=== PATIENT | female | born 1965 | race Hispanic/Latino ===

== ENCOUNTER 2019-12-17 23:22 | Emergency (ER) | payer OTHER ==
[2019-12-18] MEDS ORDERED: ONDANSETRON HCL 4 MG/2 ML VIAL ONE (00:51)
[2019-12-18] MEDS ORDERED: MORPHINE SULFATE 4 MG/1ML SYG ONE (00:51)
[2019-12-18 01:19] LABS: BASOPHILS % (AUTO) 0.4 % (0.0-5.0); EOSINOPHILS % (AUTO) 0.8 % (0.0-8.0); HEMATOCRIT 40.7 % (36-48); MEAN CORPUSCULAR HEMOGLOBIN 29.7 pg (27.0-33.0); MEAN CORPUSCULAR HGB CONC 33.2 g/dL (32.0-36.0); MEAN CORPUSCULAR VOLUME 89.6 fL (79-99); MONOCYTES % (AUTO) 6.4 % (3.0-13.0); NEUTROPHILS % (AUTO) 63.9 % (40.0-77.0); PLATELET COUNT (AUTO) 238 K/uL (130-400); RED BLOOD CELL COUNT(AUTO) 4.54 MIL/uL (4.00-5.50); RED CELL DISTRIBUTION WIDTH 13.2 % (11.0-15.5); WHITE BLOOD COUNT (AUTO) 10.8 K/uL (4.8-10.8)
[2019-12-18 01:31] LABS: POTASSIUM 3.7 mmol/L (3.5-5.1)
[2019-12-18 01:34] LABS: INR 0.92 (0.85-1.15); PARTIAL THROMBOPLASTIN TIME 25.2 SEC (26.3-35.5)
[2019-12-18 01:35] LABS: ALBUMIN 3.9 g/dL (3.5-5.0); BILIRUBIN,TOTAL 0.3 mg/dL (0.2-1.0); TOTAL PROTEIN, SERUM 8.5 g/dL (6.0-8.3)
[2019-12-18] MEDS ORDERED: IOHEXOL 350 MG/ML 100ML INFUS..BTL IV ONE (01:37)
[2019-12-18] MEDS ORDERED: LIDOCAINE 5% TOPICAL PATCH TP ONE (03:26)
== END 2019-12-18 03:37 | disposition home or self-care (01) ==
LOC: EDH 23:22
DX: S29.012A Strain of muscle and tendon of back wall of thorax, initial encounter (principal); S20.222A Contusion of left back wall of thorax, initial encounter; S09.90XA Unspecified injury of head, initial encounter; M62.838 Other muscle spasm; I10 Essential (primary) hypertension; E11.9 Type 2 diabetes mellitus without complications; Z90.710 Acquired absence of both cervix and uterus; Z98.890 Other specified postprocedural states; W18.39XA Other fall on same level, initial encounter; Y93.89 Activity, other specified; Y92.89 Other specified places as the place of occurrence of the external cause; Y99.8 Other external cause status
CPT/HCPCS: 36415; 70450; 71260; 72125; 74177; 80053; 83690; 84484; 85025; 85610; 85730; 93005; 96361; 96374; 96375; 99285; J2270; J2405; Q9967

== ENCOUNTER 2020-07-07 17:02 | Emergency (ER) | payer SELFPAY ==
[2020-07-07 18:25] LABS: BASOPHILS % (AUTO) 0.6 % (0.0-5.0); EOSINOPHILS % (AUTO) 1.2 % (0.0-8.0); HEMATOCRIT 41.7 % (36-48); LYMPHOCYTES % (AUTO) 31.5 % (21.0-51.0); MEAN CORPUSCULAR HEMOGLOBIN 29.4 pg (27.0-33.0); MEAN CORPUSCULAR HGB CONC 33.3 g/dL (32.0-36.0); MEAN CORPUSCULAR VOLUME 88.3 fL (79-99); MONOCYTES % (AUTO) 6.7 % (3.0-13.0); NEUTROPHILS % (AUTO) 59.7 % (40.0-77.0); PLATELET COUNT (AUTO) 246 K/uL (130-400); RED BLOOD CELL COUNT(AUTO) 4.72 MIL/uL (4.00-5.50); RED CELL DISTRIBUTION WIDTH 12.9 % (11.0-15.5)
[2020-07-07 18:35] LABS: CREATININE 0.9 mg/dL (0.5-1.5); POTASSIUM 3.6 mmol/L (3.5-5.1)
[2020-07-07 18:40] LABS: ALBUMIN 3.7 g/dL (3.5-5.0); BILIRUBIN,TOTAL 0.3 mg/dL (0.2-1.0); TOTAL PROTEIN, SERUM 8.5 g/dL (6.0-8.3)
== END 2020-07-07 20:40 | disposition home or self-care (01) ==
LOC: EDH 17:02
DX: G51.0 Bell's palsy (principal); E11.9 Type 2 diabetes mellitus without complications; I10 Essential (primary) hypertension; E78.00 Pure hypercholesterolemia, unspecified; Z90.710 Acquired absence of both cervix and uterus
CPT/HCPCS: 36415; 80053; 85025

== ENCOUNTER 2021-07-22 09:21 | Emergency (ER) | payer OTHER ==
[~2021-07-22] VITALS: Ht 157.5 cm; Wt 72.6 kg
[2021-07-22] MEDS ORDERED: SITA100T12 PO (09:37)
[2021-07-22] MEDS ORDERED: METF-444 PO (09:37)
[2021-07-22] MEDS ORDERED: PRAV20TA4 PO (09:37)
[2021-07-22] MEDS ORDERED: LISI5TAB21 PO (09:37)
[2021-07-22] MEDS ORDERED: AEC81 PO (09:37)
[2021-07-22 09:59] LABS: BASOPHILS % (AUTO) 0.4 % (0.0-5.0); EOSINOPHILS % (AUTO) 0.7 % (0.0-8.0); HEMATOCRIT 41.6 % (36-48); MEAN CORPUSCULAR HEMOGLOBIN 29.3 pg (27.0-33.0); MEAN CORPUSCULAR HGB CONC 33.2 g/dL (32.0-36.0); MEAN CORPUSCULAR VOLUME 88.3 fL (79-99); MONOCYTES % (AUTO) 5.9 % (3.0-13.0); NEUTROPHILS % (AUTO) 61.6 % (40.0-77.0); PLATELET COUNT (AUTO) 208 K/uL (130-400); RED BLOOD CELL COUNT(AUTO) 4.71 MIL/uL (4.00-5.50); RED CELL DISTRIBUTION WIDTH 12.6 % (11.0-15.5); WHITE BLOOD COUNT (AUTO) 9.5 K/uL (4.8-10.8)
[2021-07-22 10:06] LABS: CREATININE 0.7 mg/dL (0.5-1.5)
[2021-07-22 10:11] LABS: ALBUMIN 3.6 g/dL (3.5-5.0); BILIRUBIN,TOTAL 0.5 mg/dL (0.2-1.0); TOTAL PROTEIN, SERUM 7.4 g/dL (6.0-8.3)
[2021-07-22 10:25] LABS: B-TYPE NATRIURETIC PEPTIDE < 5 pg/mL (0-100)
[2021-07-22] MEDS ORDERED: KETOROLAC 30MG VIAL (30MG/ML) IVP SCH (11:00)
[2021-07-22] MEDS ORDERED: KETOROLAC 30MG VIAL (30MG/ML) ONE (11:00)
[2021-07-22] MEDS ORDERED: LEVETIRACETAM 500 MG/5 ML SD VIAL IV SCH (11:00)
[2021-07-22 11:11] LABS: AMPHET/METH SCREEN,URINE NEGATIVE (NEGATIVE); BARBITURATE SCREEN, URINE NEGATIVE (NEGATIVE); BENZODIAZEPINES SCREEN,URINE NEGATIVE (NEGATIVE); CANNABINOID SCREEN,URINE NEGATIVE (NEGATIVE); COCAINE SCREEN,URINE NEGATIVE (NEGATIVE); OPIATE SCREEN,URINE NEGATIVE (NEGATIVE); PHENCYCLIDINE SCREEN,URINE NEGATIVE (NEGATIVE)
[2021-07-22] MEDS ORDERED: NAPR-1196 PO ×2 (11:25→14:29)
[2021-07-22 11:38] LABS: APPEARANCE,URINE CLEAR (CLEAR); BILIRUBIN,URINE NEGATIVE (NEGATIVE); COLOR,URINE YELLOW (YELLOW); GLUCOSE, URINE (UA) 250 mg/dL (NEGATIVE); KETONES,URINE NEGATIVE (NEGATIVE); LEUKOCYTE ESTERASE ,URINE NEGATIVE (NEGATIVE); NITRATE,URINE NEGATIVE (NEGATIVE); OCCULT BLOOD,URINE NEGATIVE (NEGATIVE); PROTEIN,URINE NEGATIVE (NEGATIVE); UROBILINOGEN,URINE 0.2 mg/dL (0.2-1.0)
[2021-07-22 11:44] LABS: BACTERIA,URINE Rare /HPF (None Seen); RBC,URINE None Seen /HPF (0-1); WBC,URINE None Seen /HPF (0-1)
[2021-07-22] MEDS ORDERED: MECLIZINE HCL 25 MG TABLET ONE (11:46)
[2021-07-22] MEDS ORDERED: 0.9%NACL 1000ML 1,503 ML IV SCH (12:30)
[2021-07-22] MEDS ORDERED: MECLIZINE HCL 25 MG TABLET PO SCH (12:30)
[2021-07-22 14:20] VITALS: BP 128/76
== END 2021-07-22 14:55 | disposition home or self-care (01) ==
LOC: EDH 09:21
DX: S29.012A Strain of muscle and tendon of back wall of thorax, initial encounter (principal); R51.9 Headache, unspecified; E78.00 Pure hypercholesterolemia, unspecified; Z79.1 Long term (current) use of non-steroidal anti-inflammatories (NSAID); Z79.82 Long term (current) use of aspirin; Z79.84 Long term (current) use of oral hypoglycemic drugs; Z79.899 Other long term (current) drug therapy; X58.XXXA Exposure to other specified factors, initial encounter; Y93.89 Activity, other specified; Y92.89 Other specified places as the place of occurrence of the external cause; Y99.8 Other external cause status
CPT/HCPCS: 36415; 70450; 71045; 80053; 80305; 81001; 83880; 84484; 85025; 85378; 93005; 96361; 96374; 99285; J1885; J7030

== ENCOUNTER 2023-05-16 02:56 | Observation (INO) | payer OTHER ==
[~2023-05-16] VITALS: Ht 157.5 cm; Wt 70.0 kg
[~2023-05-16 02:56] MED LIST: AEC81 PO; LISI5TAB21 PO; METF-444 PO; NAPR-1196 PO; PRAV20TA4 PO; SITA100T12 PO
[2023-05-16] MEDS: ONDANSETRON 4MG INJ ONE (03:55)
[2023-05-16] MEDS: FAMOTIDINE 20MG VIAL IV ONE (03:55)
[2023-05-16 03:59] LABS: APPEARANCE,URINE CLOUDY (CLEAR); BILIRUBIN,URINE NEGATIVE (NEGATIVE); COLOR,URINE YELLOW (YELLOW); GLUCOSE, URINE (UA) 30 mg/dL (NEGATIVE); KETONES,URINE NEGATIVE (NEGATIVE); LEUKOCYTE ESTERASE ,URINE NEGATIVE Leu/uL (NEGATIVE); NITRATE,URINE NEGATIVE (NEGATIVE); OCCULT BLOOD,URINE NEGATIVE (NEGATIVE); PROTEIN,URINE 100 mg/dL (NEGATIVE); UROBILINOGEN,URINE 0.2 mg/dL (0.2-1.0)
[2023-05-16 04:00] LABS: ADD UA MICROSCOPIC YES
[2023-05-16 04:01] LABS: BASOPHILS # (AUTO) 0.05 K/uL (0.00-0.20); BASOPHILS % (AUTO) 0.4 % (0.0-5.0); EOSINOPHILS # (AUTO) 0.04 K/uL (0.00-0.70); EOSINOPHILS % (AUTO) 0.3 % (0.0-8.0); HEMATOCRIT 46.9 % (36-48); IMMATURE GRANULOCYTE ABSOLUTE 0.05 K/uL (0-1); LYMPHOCYTES # (AUTO) 1.7 K/uL (1.0-4.8); LYMPHOCYTES % (AUTO) 13.5 % (21.0-51.0); MEAN CORPUSCULAR HEMOGLOBIN 29.6 pg (27.0-33.0); MEAN CORPUSCULAR HGB CONC 33.5 g/dL (32.0-36.0); MEAN CORPUSCULAR VOLUME 88.3 fL (79-99); MONOCYTES # (AUTO) 0.6 K/uL (0.1-1.0); MONOCYTES % (AUTO) 5.2 % (3.0-13.0); NEUTROPHILS # (AUTO) 9.9 K/uL (1.8-7.7); NEUTROPHILS % (AUTO) 80.2 % (40.0-77.0); PLATELET COUNT (AUTO) 266 K/uL (130-400); RED BLOOD CELL COUNT(AUTO) 5.31 MIL/uL (4.00-5.50); RED CELL DISTRIBUTION WIDTH 13.1 % (11.0-15.5); WHITE BLOOD COUNT (AUTO) 12.3 K/uL (4.8-10.8)
[2023-05-16 04:03] LABS: BACTERIA,URINE RARE /HPF (None Seen); MUCUS,URINE MANY LPF (None Seen); SQUAMOUS EPITHELIAL CELL,UR MANY /HPF (0-2)
[2023-05-16 04:10] LABS: CREATININE 0.8 mg/dL (0.5-1.5); POTASSIUM 4.1 mmol/L (3.5-5.1)
[2023-05-16 04:17] LABS: ALBUMIN 4.4 g/dL (3.5-5.0); BILIRUBIN,TOTAL 0.7 mg/dL (0.2-1.0); TOTAL PROTEIN, SERUM 8.5 g/dL (6.0-8.3)
[2023-05-16 04:19] LABS: INFLUENZA TYPE A Negative For Type A (NEGATIVE)
[2023-05-16] MEDS: 0.9%NACL 1000ML 1,503 ML IV ONE (04:35)
[2023-05-16] MEDS: METOCLOPRAMIDE 10 MG/2 ML VIAL IVP ONE (04:35)
[2023-05-16] MEDS: MORPHINE 4 MG SYG IVP ONE (04:35)
[2023-05-16] MEDS ORDERED: IOHEXOL 350 MG/ML 100ML INFUS..BTL IV ONE (04:36)
[2023-05-16 04:48] LABS: INFLUENZA TYPE B Positive For Type B (NEGATIVE)
[2023-05-16] MEDS: OSELTAMIVIR PHOSPHATE 75 MG CAP PO ONE (05:22)
[2023-05-16 05:34] LABS: COVID19 (SARS ANTIGEN RAPID) POSITIVE FOR SARS AG (NEGATIVE)
[2023-05-16] MEDS ORDERED: ONDANSETRON 4MG INJ IV PRN (08:30)
[2023-05-16] MEDS ORDERED: GLUCAGON 1MG KIT 1 MG ML IM PRN (08:30)
[2023-05-16] MEDS ORDERED: CEFTRIAXONE 1G VIAL 1 GM in 0.9%NACL 50ML 50 ML IV SCH (08:30)
[2023-05-16] MEDS ORDERED: MAGNESIUM 2GM PREMIX 50ML 50 ML IV PRN (08:30)
[2023-05-16] MEDS ORDERED: DEXTROSE 50%-WATER 50 ML DISP.SYRIN IV PRN (08:30)
[2023-05-16] MEDS ORDERED: POTASSIUM CHLORIDE 20MEQ/100ML 100 ML IV PRN (08:30)
[2023-05-16] MEDS ORDERED: DULO60CA45 PO (09:37)
[2023-05-16] MEDS ORDERED: ZOLP12.52 PO (09:37)
[2023-05-16] MEDS ORDERED: INVOK100TB PO (09:37)
[2023-05-16] MEDS ORDERED: METF-446 PO (09:37)
[2023-05-16] MEDS ORDERED: PRAV40TA3 PO (09:37)
[2023-05-16] MEDS: FAMOTIDINE 20MG VIAL IV SCH (10:13)
[2023-05-16] MEDS: CEFTRIAXONE 1G VIAL IVPB SCH (10:13)
[2023-05-16] MEDS: OSELTAMIVIR PHOSPHATE 75 MG CAP PO SCH (10:13)
[2023-05-16] MEDS: 0.9%NACL 1000ML 1,000 ML IV SCH (10:14)
[2023-05-16] MEDS: INSULIN HUMULIN R 100 UNIT/ML 3ML SQ SCH ×2 (12:00→17:24)
[2023-05-17 00:15] VITALS: BP 129/71; PULSE 96; RESP 18; O2SAT 97
[2023-05-17 04:00] VITALS: BP 126/83; PULSE 114; RESP 18
[2023-05-17 04:26] LABS: BASOPHILS # (AUTO) 0.02 K/uL (0.00-0.20); BASOPHILS % (AUTO) 0.3 % (0.0-5.0); EOSINOPHILS # (AUTO) 0.01 K/uL (0.00-0.70); EOSINOPHILS % (AUTO) 0.2 % (0.0-8.0); HEMATOCRIT 43.5 % (36-48); IMMATURE GRANULOCYTE ABSOLUTE 0.02 K/uL (0-1); LYMPHOCYTES # (AUTO) 0.9 K/uL (1.0-4.8); LYMPHOCYTES % (AUTO) 14.8 % (21.0-51.0); MEAN CORPUSCULAR HEMOGLOBIN 29.6 pg (27.0-33.0); MEAN CORPUSCULAR HGB CONC 33.1 g/dL (32.0-36.0); MEAN CORPUSCULAR VOLUME 89.3 fL (79-99); MONOCYTES # (AUTO) 0.4 K/uL (0.1-1.0); MONOCYTES % (AUTO) 6.4 % (3.0-13.0); NEUTROPHILS # (AUTO) 4.5 K/uL (1.8-7.7); PLATELET COUNT (AUTO) 192 K/uL (130-400); RED BLOOD CELL COUNT(AUTO) 4.87 MIL/uL (4.00-5.50); RED CELL DISTRIBUTION WIDTH 13.3 % (11.0-15.5); WHITE BLOOD COUNT (AUTO) 5.8 K/uL (4.8-10.8)
[2023-05-17 04:56] LABS: ALBUMIN 3.2 g/dL (3.5-5.0); BILIRUBIN,TOTAL 0.5 mg/dL (0.2-1.0); CREATININE 0.7 mg/dL (0.5-1.5); POTASSIUM 3.6 mmol/L (3.5-5.1)
[2023-05-17 05:06] LABS: HEMOGLOBIN A1C 6.2 % (4.0-6.0)
[2023-05-17] MEDS: ACETAMINOPHEN 325 MG TAB PO PRN (05:43)
[2023-05-17 08:00] VITALS: BP 132/84; PULSE 84; RESP 19
[2023-05-17] MEDS ORDERED: AMOX1TAB16 PO (10:26)
[2023-05-17] MEDS ORDERED: OSEL75CA17 PO (10:26)
[2023-05-17] MEDS ORDERED: ACETAMINOPHEN 500 MG TABLET PO PRN (10:30)
[2023-05-17 12:00] VITALS: BP 120/84; PULSE 83; RESP 18
== END 2023-05-17 16:15 | disposition home or self-care (01) ==
LOC: EDH 02:56 → EDHIP 02:57 → INTOOBSV 02:57 → 4CH 23:56
PROVIDERS: ADMIT Hospitalist; ATTEND Hospitalist
DX: U07.1 COVID-19 (principal); A04.9 Bacterial intestinal infection, unspecified; J10.1 Influenza due to other identified influenza virus with other respiratory manifestations; N39.0 Urinary tract infection, site not specified; R65.20 Severe sepsis without septic shock; E86.0 Dehydration; E11.9 Type 2 diabetes mellitus without complications; D72.829 Elevated white blood cell count, unspecified; E78.5 Hyperlipidemia, unspecified; K56.0 Paralytic ileus; I10 Essential (primary) hypertension; F32.A Depression, unspecified; Z79.84 Long term (current) use of oral hypoglycemic drugs; Z90.710 Acquired absence of both cervix and uterus; Z79.82 Long term (current) use of aspirin; Z79.899 Other long term (current) drug therapy
CPT/HCPCS: 96374; 96376 ×2; 96361 ×3; 96375; 99285; 82550; 83735; 84484; 80053 ×2; 83690; 85025 ×2; 85651; 87040 ×2; 87088; 87880; 87804 ×2; 82948 ×5; 83605; 86140; 87426; 81001; 36415 ×2; 74178; 76705; 93005; 84145; 83036; 80061; J3490 ×4; J7030; J0696 ×2; J2405; J2270; J2765; Q9967; G0378 ×3

== ENCOUNTER 2023-09-05 11:38 | Emergency (ER) | payer OTHER ==
[~2023-09-05] VITALS: Ht 157.5 cm; Wt 63.0 kg
[~2023-09-05 11:38] MED LIST changes: -AEC81 PO; +AMOX1TAB16 PO; +DULO60CA45 PO; +INVOK100TB PO; +KETO10TA2 PO; -LISI5TAB21 PO; -METF-444 PO; +METF-446 PO; -NAPR-1196 PO; +OSEL75CA17 PO; -PRAV20TA4 PO; +PRAV40TA3 PO; -SITA100T12 PO; +ZOLP12.52 PO
[2023-09-05] MEDS: FAMOTIDINE 20MG VIAL IV ONE (11:55)
[2023-09-05] MEDS: 0.9%NACL 1000ML 1,000 ML IV ONE (11:55)
[2023-09-05] MEDS: ONDANSETRON 4MG INJ IVP ONE (11:55)
[2023-09-05] MEDS: MORPHINE 2 MG SYG IVP ONE (11:56)
[2023-09-05 12:05] LABS: BASOPHILS # (AUTO) 0.02 K/uL (0.00-0.20); BASOPHILS % (AUTO) 0.3 % (0.0-5.0); EOSINOPHILS # (AUTO) 0.02 K/uL (0.00-0.70); EOSINOPHILS % (AUTO) 0.3 % (0.0-8.0); HEMATOCRIT 42.2 % (36-48); IMMATURE GRANULOCYTE ABSOLUTE 0.02 K/uL (0-1); LYMPHOCYTES # (AUTO) 1.9 K/uL (1.0-4.8); LYMPHOCYTES % (AUTO) 25.6 % (21.0-51.0); MEAN CORPUSCULAR HEMOGLOBIN 30.5 pg (27.0-33.0); MEAN CORPUSCULAR HGB CONC 32.9 g/dL (32.0-36.0); MEAN CORPUSCULAR VOLUME 92.5 fL (79-99); MONOCYTES # (AUTO) 0.5 K/uL (0.1-1.0); MONOCYTES % (AUTO) 6.2 % (3.0-13.0); NEUTROPHILS # (AUTO) 4.9 K/uL (1.8-7.7); NEUTROPHILS % (AUTO) 67.3 % (40.0-77.0); PLATELET COUNT (AUTO) 262 K/uL (130-400); RED BLOOD CELL COUNT(AUTO) 4.56 MIL/uL (4.00-5.50); RED CELL DISTRIBUTION WIDTH 13.1 % (11.0-15.5); WHITE BLOOD COUNT (AUTO) 7.2 K/uL (4.8-10.8)
[2023-09-05 12:25] LABS: CREATININE 0.9 mg/dL (0.5-1.0); POTASSIUM 3.8 mmol/L (3.5-5.1)
[2023-09-05 12:28] LABS: ADD UA MICROSCOPIC NO; APPEARANCE,URINE CLEAR (CLEAR); BILIRUBIN,URINE NEGATIVE (NEGATIVE); COLOR,URINE YELLOW (YELLOW); GLUCOSE, URINE (UA) NEGATIVE (NEGATIVE); KETONES,URINE NEGATIVE (NEGATIVE); LEUKOCYTE ESTERASE ,URINE NEGATIVE Leu/uL (NEGATIVE); NITRATE,URINE NEGATIVE (NEGATIVE); OCCULT BLOOD,URINE NEGATIVE (NEGATIVE); PH,URINE 5.5 (5.0-8.0); PROTEIN,URINE NEGATIVE (NEGATIVE); UROBILINOGEN,URINE 0.2 mg/dL (0.2-1.0)
[2023-09-05 12:30] LABS: ALBUMIN 4.1 g/dL (3.5-5.0); BILIRUBIN,TOTAL 0.6 mg/dL (0.2-1.0); TOTAL PROTEIN, SERUM 7.9 g/dL (6.0-8.3)
[2023-09-05 12:52] VITALS: BP 118/87; PULSE 92; RESP 17; O2SAT 98
[2023-09-05] MEDS ORDERED: OMEP40CA21 PO (13:57)
[2023-09-05] MEDS ORDERED: SUCR1TAB PO (13:57)
== END 2023-09-05 14:57 | disposition home or self-care (01) ==
LOC: EDH 11:38
DX: K29.00 Acute gastritis without bleeding (principal); E11.9 Type 2 diabetes mellitus without complications; Z79.84 Long term (current) use of oral hypoglycemic drugs; Z79.899 Other long term (current) drug therapy; Z98.890 Other specified postprocedural states
CPT/HCPCS: 99284; 96374; 96375; 84484; 80053; 83690; 85025; 81003; 36415; 93005; J3490; J2270; J7030; J2405